=== PATIENT | male | born 1955 | race African-American/Black ===

== ENCOUNTER 2021-11-28 00:58 | Inpatient (IN) | payer MEDICARE, MEDICAID ==
[2021-11-28 02:43] LABS: #Eosinphils 0.3 thou/uL (0.0-0.7); #Lymphocytes 2.2 thou/uL (1.20-3.40); #Monocytes 0.5 thou/uL (0.11-0.59); #Neutrophils 4.6 thou/uL (1.40-6.50); %Basophils 0.6 % (0.0-1.0); %Eosinophils 3.7 % (0.0-10.0); %Lymphocytes 29.4 % (21.0-51.0); %Monocytes 6.1 % (0.0-10.0); %Neutrophils 60.2 % (42.0-75.0); Hemoglobin 12.3 g/dL (14.0-18.0); Mean Corpuscular HGB CONC 31.5 g/dL (32.0-36.0); Mean Corpuscular Hemoglobin 26.7 pg (27.0-31.0); Mean Corpuscular Volume 84.8 fL (78.0-98.0); Mean Platelet Volume 8.9 fL (7.4-10.4); Platelet Count 325 thou/uL (130-400); RBC Distribution Width 18.4 % (11.5-14.5); Red Blood Cell (RBC) Count 4.59 mill/uL (4.70-6.10); White Blood Cell (WBC) Count 7.6 thou/uL (4.8-10.8)
[2021-11-28 03:06] LABS: ALT (SGPT) 11 U/L (8-55); AST (SGOT) 24 U/L (5-34); Albumin 3.5 g/dL (3.4-4.8); Alkaline Phosphatase 115 U/L (40-110); Anion Gap 18 mmol/L (10-20); BUN (Urea Nitrogen) 16 mg/dL (8.4-25.7); Bilirubin, Total 0.3 mg/dL (0.2-1.2); Calc. Creatinine Clearance 0 mL/min (70-130); Calcium 9.5 mg/dL (7.8-10.44); Carbon Dioxide 19 mmol/L (23-31); Chloride 105 mmol/L (98-107); Globulin 5.6 g/dL (2.4-3.5); Glucose 93 mg/dL (80-115); Potassium 4.8 mmol/L (3.5-5.1); Protein, Total 9.1 g/dL (5.8-8.1); Sodium 137 mmol/L (136-145)
[2021-11-28] MEDS ORDERED: Vancomycin 1 GM/200 ML BAG ONE (04:02)
[2021-11-28] MEDS ORDERED: Cefepime 2 GM VIAL ONE (04:02)
[2021-11-28] MEDS ORDERED: Ondansetron PF 4 MG/2 ML Vial IVP PRN ×2 (06:15→07:53)
[2021-11-28] MEDS ORDERED: Ondansetron ODT 4 MG TAB SL PRN (06:15)
[2021-11-28] MEDS ORDERED: Cefepime 2 GM in Sodium Chloride 0.9% 100 ML IVPB SCH ×2 (09:00→12:00)
[2021-11-28 09:59] VITALS: BMI 26.6
[2021-11-28] MEDS ORDERED: hydrALAZINE 25 MG TAB PO SCH (10:15)
[2021-11-28] MEDS: Enoxaparin Sodium 40 MG/0.4 ML SYRINGE SC SCH (11:35)
[2021-11-28] MEDS: hydrALAZINE 25 MG TAB PO SCH ×2 (14:59→20:15)
[2021-11-28] MEDS: Acetaminophen 325 MG TAB PO PRN (20:22)
[2021-11-29] MEDS ORDERED: Vancomycin 1.5 GRAM/300 ML BAG 1.5 GM in Premix Bag 1 BAG IVPB SCH (04:00)
[2021-11-29] MEDS: VANCOMYCIN 1.25 GM/250 ML BAG 1.25 GM in Premix Bag 1 BAG IVPB SCH (04:09)
[2021-11-29] MEDS: hydrALAZINE 25 MG TAB PO SCH ×3 (08:41→20:07)
[2021-11-29] MEDS: Enoxaparin Sodium 40 MG/0.4 ML SYRINGE SC SCH (08:41)
[2021-11-29] MEDS ORDERED: hydrALAZINE 20 MG/ML VIAL SLOW IVP PRN ×2 (09:00→21:08)
[2021-11-29] MEDS: Ammonium Lactate 12% Lotion 225 GM BOT TOP SCH ×2 (10:27→20:39)
[2021-11-29] MEDS: cefTRIAXone\\ROCEPHIN 2 GM in Sodium Chloride 0.9% 100 ML IVPB SCH (10:28)
[2021-11-29 10:55] LABS: Anion Gap 13 mmol/L (10-20); BUN (Urea Nitrogen) 11 mg/dL (8.4-25.7); Calc. Creatinine Clearance 72 mL/min (70-130); Calcium 8.4 mg/dL (7.8-10.44); Carbon Dioxide 23 mmol/L (23-31); Chloride 106 mmol/L (98-107); Glucose 98 mg/dL (80-115); Potassium 3.5 mmol/L (3.5-5.1); Sodium 138 mmol/L (136-145)
[2021-11-29 11:53] LABS: Hemoglobin 10.1 g/dL (14.0-18.0); Mean Corpuscular Hemoglobin 26.5 pg (27.0-31.0); Mean Corpuscular Volume 85.4 fL (78.0-98.0); Mean Platelet Volume 9.1 fL (7.4-10.4); Platelet Count 265 thou/uL (130-400); White Blood Cell (WBC) Count 6.3 thou/uL (4.8-10.8)
[2021-11-29 11:54] LABS: Band 1 % (5-11); Eosinophils 9 % (0-10); Lymphocytes 24 % (21-51); MDiff Complete? YES; Monocytes 6 % (0-10); Neutrophil 59 % (42-75); Platelet Morphology Comment Appears Adequate; RBC Morphology Normal; Reactive Lymphocytes 1 % (0-10)
[2021-11-29] MEDS: Saccharomyces boulardii 250 MG CAP PO SCH (20:07)
[2021-11-30] MEDS: Acetaminophen 325 MG TAB PO PRN (03:01)
[2021-11-30 04:45] LABS: #Eosinphils 0.7 thou/uL (0.0-0.7); #Lymphocytes 1.7 thou/uL (1.20-3.40); #Monocytes 0.4 thou/uL (0.11-0.59); #Neutrophils 3.6 thou/uL (1.40-6.50); %Basophils 0.4 % (0.0-1.0); %Eosinophils 10.6 % (0.0-10.0); %Lymphocytes 26.7 % (21.0-51.0); %Monocytes 6.8 % (0.0-10.0); %Neutrophils 55.4 % (42.0-75.0); Hemoglobin 11.1 g/dL (14.0-18.0); Mean Corpuscular HGB CONC 30.7 g/dL (32.0-36.0); Mean Corpuscular Volume 84.7 fL (78.0-98.0); Mean Platelet Volume 11.4 fL (7.4-10.4); Platelet Count 190 thou/uL (130-400); RBC Distribution Width 17.9 % (11.5-14.5); Red Blood Cell (RBC) Count 4.28 mill/uL (4.70-6.10); White Blood Cell (WBC) Count 6.4 thou/uL (4.8-10.8)
[2021-11-30 05:01] LABS: Vancomycin, Trough 26.4 ug/mL
[2021-11-30 05:05] LABS: Anion Gap 15 mmol/L (10-20); BUN (Urea Nitrogen) 10 mg/dL (8.4-25.7); Calc. Creatinine Clearance 76 mL/min (70-130); Calcium 9.1 mg/dL (7.8-10.44); Carbon Dioxide 23 mmol/L (23-31); Chloride 106 mmol/L (98-107); Glucose 85 mg/dL (80-115); Magnesium 1.7 mg/dL (1.6-2.6); Phosphorus 3.1 mg/dL (2.3-4.7); Potassium 3.8 mmol/L (3.5-5.1); Sodium 140 mmol/L (136-145)
[2021-11-30] MEDS: VANCOMYCIN 1.25 GM/250 ML BAG 1.25 GM in Premix Bag 1 BAG IVPB SCH ×2 (05:11→05:16)
[2021-11-30] MEDS: cefTRIAXone\\ROCEPHIN 2 GM in Sodium Chloride 0.9% 100 ML IVPB SCH (08:13)
[2021-11-30] MEDS: pyridOXINE 50 MG (B6) TAB PO SCH (08:13)
[2021-11-30] MEDS: Folic Acid 1 MG TAB PO SCH (08:13)
[2021-11-30] MEDS: Cyanocobalamin (Vitamin B-12) 1,000 MCG TAB PO SCH (08:13)
[2021-11-30] MEDS: Cholecalciferol 1,000 UNITS (25 MCG) TAB PO SCH (08:13)
[2021-11-30] MEDS: Enoxaparin Sodium 40 MG/0.4 ML SYRINGE SC SCH (08:13)
[2021-11-30] MEDS: Multivit, Therapeutic 1 TAB PO SCH (08:13)
[2021-11-30] MEDS: hydrALAZINE 25 MG TAB PO SCH ×3 (08:13→22:12)
[2021-11-30] MEDS: Thiamine 100 MG TAB PO SCH (08:13)
[2021-11-30] MEDS: Ammonium Lactate 12% Lotion 225 GM BOT TOP SCH ×2 (08:14→21:05)
[2021-11-30] MEDS ORDERED: Carvedilol 3.125 MG TAB PO SCH (18:00)
[2021-11-30] MEDS: Saccharomyces boulardii 250 MG CAP PO SCH (22:12)
[2021-11-30] MEDS: Cefepime 1 GM in Sodium Chloride 0.9% 100 ML IVPB SCH (22:13)
[2021-12-01] MEDS: Vancomycin HCl 750 MG in Sodium Chloride 0.9% 250 ML 250 ML IVPB SCH (05:04)
[2021-12-01] MEDS: Acetaminophen 325 MG TAB PO PRN ×2 (05:18→22:24)
[2021-12-01] MEDS: Enoxaparin Sodium 40 MG/0.4 ML SYRINGE SC SCH (08:59)
[2021-12-01] MEDS: Cefepime 1 GM in Sodium Chloride 0.9% 100 ML IVPB SCH (08:59)
[2021-12-01] MEDS: pyridOXINE 50 MG (B6) TAB PO SCH (09:00)
[2021-12-01] MEDS: hydrALAZINE 25 MG TAB PO SCH ×3 (09:00→22:24)
[2021-12-01] MEDS: Multivit, Therapeutic 1 TAB PO SCH (09:00)
[2021-12-01] MEDS: Thiamine 100 MG TAB PO SCH (09:00)
[2021-12-01] MEDS: Carvedilol 3.125 MG TAB PO SCH ×2 (09:00→16:58)
[2021-12-01] MEDS: Cholecalciferol 1,000 UNITS (25 MCG) TAB PO SCH (09:00)
[2021-12-01] MEDS: Colchicine 0.6 MG TAB PO SCH (09:00)
[2021-12-01] MEDS: Folic Acid 1 MG TAB PO SCH (09:00)
[2021-12-01] MEDS: Cyanocobalamin (Vitamin B-12) 1,000 MCG TAB PO SCH (09:00)
[2021-12-01] MEDS: Ammonium Lactate 12% Lotion 225 GM BOT TOP SCH ×2 (09:01→22:24)
[2021-12-01] MEDS ORDERED: Cefepime 2 GM in Sodium Chloride 0.9% 100 ML IVPB SCH (18:30)
[2021-12-01] MEDS: Saccharomyces boulardii 250 MG CAP PO SCH (22:24)
[2021-12-02] MEDS: Cefepime 2 GM in Sodium Chloride 0.9% 100 ML IVPB SCH ×3 (02:45→17:17)
[2021-12-02] MEDS: Vancomycin HCl 750 MG in Sodium Chloride 0.9% 250 ML 250 ML IVPB SCH (03:57)
[2021-12-02 07:11] LABS: Mean Corpuscular HGB CONC 31.1 g/dL (32.0-36.0); Mean Corpuscular Hemoglobin 26.3 pg (27.0-31.0); Mean Corpuscular Volume 84.6 fL (78.0-98.0); Mean Platelet Volume 9.9 fL (7.4-10.4); Platelet Count 194 thou/uL (130-400); RBC Distribution Width 17.5 % (11.5-14.5); White Blood Cell (WBC) Count 7.9 thou/uL (4.8-10.8)
[2021-12-02 07:48] LABS: Anion Gap 13 mmol/L (10-20); BUN (Urea Nitrogen) 10 mg/dL (8.4-25.7); Calc. Creatinine Clearance 69 mL/min (70-130); Calcium 8.9 mg/dL (7.8-10.44); Carbon Dioxide 21 mmol/L (23-31); Chloride 107 mmol/L (98-107); Glucose 89 mg/dL (80-115); Potassium 4.5 mmol/L (3.5-5.1); Sodium 136 mmol/L (136-145)
[2021-12-02 07:55] LABS: Anisocytosis SLIGHT = 6-15 cells (100X) (0-5/hpf); Eosinophils 10 % (0-10); Hypochromia SLIGHT = 6-15 cells (100X) (0-5/hpf); Lymphocytes 26 % (21-51); MDiff Complete? YES; Monocytes 8 % (0-10); Neutrophil 53 % (42-75); Platelet Morphology Comment Appears Adequate; Polychromasia SLIGHT = 2-3 cells (100X) (0-2/hpf); Reactive Lymphocytes 3 % (0-10)
[2021-12-02] MEDS: hydrALAZINE 25 MG TAB PO SCH ×3 (10:06→21:04)
[2021-12-02] MEDS: Enoxaparin Sodium 40 MG/0.4 ML SYRINGE SC SCH (10:06)
[2021-12-02] MEDS: Folic Acid 1 MG TAB PO SCH (10:07)
[2021-12-02] MEDS: pyridOXINE 50 MG (B6) TAB PO SCH (10:07)
[2021-12-02] MEDS: Colchicine 0.6 MG TAB PO SCH (10:07)
[2021-12-02] MEDS: Multivit, Therapeutic 1 TAB PO SCH (10:07)
[2021-12-02] MEDS: Thiamine 100 MG TAB PO SCH (10:07)
[2021-12-02] MEDS: Carvedilol 3.125 MG TAB PO SCH ×2 (10:07→17:18)
[2021-12-02] MEDS: Cholecalciferol 1,000 UNITS (25 MCG) TAB PO SCH (10:07)
[2021-12-02] MEDS: Cyanocobalamin (Vitamin B-12) 1,000 MCG TAB PO SCH (10:08)
[2021-12-02] MEDS: Ammonium Lactate 12% Lotion 225 GM BOT TOP SCH ×2 (10:08→21:05)
[2021-12-02] MEDS: Acetaminophen 325 MG TAB PO PRN (21:05)
[2021-12-02] MEDS: Saccharomyces boulardii 250 MG CAP PO SCH (21:05)
[2021-12-03] MEDS: Cefepime 2 GM in Sodium Chloride 0.9% 100 ML IVPB SCH ×3 (03:00→16:57)
[2021-12-03 03:48] LABS: Vancomycin, Trough 25.3 ug/mL
[2021-12-03] MEDS: Multivit, Therapeutic 1 TAB PO SCH (08:55)
[2021-12-03] MEDS: Colchicine 0.6 MG TAB PO SCH (08:55)
[2021-12-03] MEDS: Thiamine 100 MG TAB PO SCH (08:55)
[2021-12-03] MEDS: Carvedilol 3.125 MG TAB PO SCH ×2 (08:55→15:17)
[2021-12-03] MEDS: Enoxaparin Sodium 40 MG/0.4 ML SYRINGE SC SCH (08:55)
[2021-12-03] MEDS: Folic Acid 1 MG TAB PO SCH (08:55)
[2021-12-03] MEDS: Cyanocobalamin (Vitamin B-12) 1,000 MCG TAB PO SCH (08:55)
[2021-12-03] MEDS: Cholecalciferol 1,000 UNITS (25 MCG) TAB PO SCH (08:55)
[2021-12-03] MEDS: hydrALAZINE 25 MG TAB PO SCH ×3 (08:55→21:36)
[2021-12-03] MEDS: pyridOXINE 50 MG (B6) TAB PO SCH (08:55)
[2021-12-03] MEDS: Ammonium Lactate 12% Lotion 225 GM BOT TOP SCH ×2 (08:56→21:37)
[2021-12-03] MEDS ORDERED: Vancomycin HCl 500 MG in Sodium Chloride 0.9% 100 ML IVPB SCH (16:00)
[2021-12-03] MEDS: Saccharomyces boulardii 250 MG CAP PO SCH (21:36)
[2021-12-04] MEDS: Cefepime 2 GM in Sodium Chloride 0.9% 100 ML IVPB SCH ×3 (01:56→19:16)
[2021-12-04] MEDS ORDERED: Ferrous Sulfate 325 MG TAB PO SCH (08:00)
[2021-12-04 09:45] LABS: Vancomycin, Random 19.4 ug/mL (See Comment)
[2021-12-04] MEDS: Folic Acid 1 MG TAB PO SCH (10:09)
[2021-12-04] MEDS: Multivit, Therapeutic 1 TAB PO SCH (10:09)
[2021-12-04] MEDS: Thiamine 100 MG TAB PO SCH (10:09)
[2021-12-04] MEDS: Carvedilol 3.125 MG TAB PO SCH ×2 (10:09→16:14)
[2021-12-04] MEDS: pyridOXINE 50 MG (B6) TAB PO SCH (10:09)
[2021-12-04] MEDS: Colchicine 0.6 MG TAB PO SCH (10:09)
[2021-12-04] MEDS: Cyanocobalamin (Vitamin B-12) 1,000 MCG TAB PO SCH (10:10)
[2021-12-04] MEDS: Enoxaparin Sodium 40 MG/0.4 ML SYRINGE SC SCH (10:10)
[2021-12-04] MEDS: Cholecalciferol 1,000 UNITS (25 MCG) TAB PO SCH (10:10)
[2021-12-04] MEDS: Ammonium Lactate 12% Lotion 225 GM BOT TOP SCH (10:11)
[2021-12-04] MEDS: hydrALAZINE 25 MG TAB PO SCH ×2 (10:12→16:14)
[2021-12-04 15:47] LABS: Vancomycin, Random 19.4 ug/mL (See Comment)
[2021-12-04 17:53] VITALS: BP 154/84; TEMP 98.4
== END 2021-12-04 19:25 | DRG 593 ==
LOC: ERS 00:58 → T4-B 04:02 → OBSVTOIN 11-29 21:07
PROVIDERS: ADMIT Hospitalist; ATTEND Hospitalist
DX: L97.929 Non-pressure chronic ulcer of unspecified part of left lower leg with unspecified severity (principal); L03.116 Cellulitis of left lower limb; L97.919 Non-pressure chronic ulcer of unspecified part of right lower leg with unspecified severity; Z20.822 Contact with and (suspected) exposure to COVID-19; M10.9 Gout, unspecified; D53.9 Nutritional anemia, unspecified; I12.9 Hypertensive chronic kidney disease with stage 1 through stage 4 chronic kidney disease, or unspecified chronic kidney disease; N18.2 Chronic kidney disease, stage 2 (mild)
CPT/HCPCS: 36415; 80048; 80053; 80202; 83735; 84100; 85025; 85652; 86140; 87070; 87077; 87205; 96365; 96367; J0692; J0696; J1650; J3370; J3490; J7050; U0003; U0005

== ENCOUNTER 2022-03-26 14:11 | Inpatient (IN) | payer MEDICARE, MEDICAID ==
[2022-03-26 15:40] LABS: #Lymphocytes 2.2 thou/uL (1.20-3.40); #Monocytes 1.8 thou/uL (0.11-0.59); #Neutrophils 9.1 thou/uL (1.40-6.50); %Basophils 0.1 % (0.0-1.0); %Eosinophils 0.4 % (0.0-10.0); %Lymphocytes 16.9 % (21.0-51.0); %Monocytes 13.4 % (0.0-10.0); %Neutrophils 69.3 % (42.0-75.0); Hemoglobin 12.8 g/dL (14.0-18.0); Mean Corpuscular HGB CONC 32.1 g/dL (32.0-36.0); Mean Platelet Volume 8.6 fL (7.4-10.4); Platelet Count 249 thou/uL (130-400); RBC Distribution Width 16.3 % (11.5-14.5); Red Blood Cell (RBC) Count 4.75 mill/uL (4.70-6.10); White Blood Cell (WBC) Count 13.2 thou/uL (4.8-10.8)
[2022-03-26 15:58] LABS: ALT (SGPT) 10 U/L (8-55); AST (SGOT) 9 U/L (5-34); Albumin 3.6 g/dL (3.4-4.8); Alkaline Phosphatase 69 U/L (40-110); Anion Gap 12 mmol/L (10-20); BUN (Urea Nitrogen) 11 mg/dL (8.4-25.7); Bilirubin, Total 0.8 mg/dL (0.2-1.2); Calc. Creatinine Clearance 0 mL/min (70-130); Calcium 9.2 mg/dL (7.8-10.44); Carbon Dioxide 21 mmol/L (23-31); Chloride 106 mmol/L (98-107); Estimated GFR 72; Globulin 4.3 g/dL (2.4-3.5); Glucose 110 mg/dL (80-115); Potassium 3.8 mmol/L (3.5-5.1); Protein, Total 7.9 g/dL (5.8-8.1); Sodium 135 mmol/L (136-145)
[2022-03-26] MEDS ORDERED: Cefepime 2 GM VIAL ONE (16:02)
[2022-03-26] MEDS ORDERED: Vancomycin 1 GM/200 ML BAG ONE (16:02)
[2022-03-26] MEDS ORDERED: Ondansetron PF 4 MG/2 ML Vial IVP PRN (17:41)
[2022-03-26] MEDS ORDERED: Senokot S 8.6-50 MG TAB PO PRN (17:41)
[2022-03-26] MEDS ORDERED: hydrALAZINE 20 MG/ML VIAL SLOW IVP PRN (17:45)
[2022-03-26] MEDS ORDERED: hydrALAZINE 20 MG/ML VIAL ONE (18:16)
[2022-03-26] MEDS ORDERED: Morphine 4 MG/ML VIAL ONE (18:42)
[2022-03-26] MEDS ORDERED: Acetaminophen 500 MG TAB ONE (19:11)
[2022-03-26] MEDS ORDERED: Colchicine 0.6 MG TAB PO SCH (19:30)
[2022-03-26] MEDS ORDERED: Vancomycin 1 GM in Premix Bag 1 BAG IVPB SCH (19:30)
[2022-03-26 20:16] VITALS: BMI 35.7
[2022-03-26] MEDS: hydrALAZINE 25 MG TAB PO SCH (21:11)
[2022-03-26] MEDS: Acetaminophen 325 MG TAB PO PRN (21:12)
[2022-03-26] MEDS: Indomethacin 25 mg Capsule PO SCH (21:14)
[2022-03-27] MEDS: Cefepime 1 GM in Sodium Chloride 0.9% 100 ML IVPB SCH ×2 (03:36→15:18)
[2022-03-27 04:09] LABS: Bacteria/HPF 1+ HPF (None Seen); Bilirubin Negative (Negative); Blood, Urine Trace (Negative); Clarity Clear (Clear); Glucose, Urine (Dipstick) Normal (Negative); Ketone, Urine Negative (Negative); Leukocyte Negative Leu/uL (Negative); Nitrite Negative (Negative); Protein, Urine (Dipstick) 30 mg/dL (Neg-Trace); RBC/HPF 0-3 HPF (0-3); Specific Gravity, Urine 1.011 (1.002-1.036); Squamous Epithelial 0-3 HPF (0-3); Urobilinogen Normal mg/dL (Less than 2); WBC/HPF 0-3 HPF (0-3); pH, Urine 5.5 (5.0-9.0)
[2022-03-27] MEDS: Colchicine 0.6 MG TAB PO SCH (08:32)
[2022-03-27] MEDS: hydrALAZINE 25 MG TAB PO SCH ×3 (08:32→20:21)
[2022-03-27] MEDS: Indomethacin 25 mg Capsule PO SCH ×3 (08:32→20:21)
[2022-03-27] MEDS: Carvedilol 3.125 MG TAB PO SCH ×2 (08:32→17:37)
[2022-03-27] MEDS: Ferrous Sulfate 325 MG TAB PO SCH (08:32)
[2022-03-27] MEDS: Folic Acid 1 MG TAB PO SCH (08:32)
[2022-03-27] MEDS: Enoxaparin Sodium 40 MG/0.4 ML SYRINGE SC SCH (08:33)
[2022-03-27] MEDS: pyridOXINE 50 MG (B6) TAB PO SCH (08:33)
[2022-03-27] MEDS: Thiamine 100 MG TAB PO SCH (08:33)
[2022-03-27 08:55] LABS: #Eosinphils 0.3 thou/uL (0.0-0.7); #Lymphocytes 1.6 thou/uL (1.20-3.40); #Monocytes 0.6 thou/uL (0.11-0.59); %Basophils 0.3 % (0.0-1.0); %Eosinophils 2.6 % (0.0-10.0); %Lymphocytes 15.4 % (21.0-51.0); %Monocytes 5.9 % (0.0-10.0); %Neutrophils 75.8 % (42.0-75.0); Hemoglobin 13.4 g/dL (14.0-18.0); Mean Corpuscular HGB CONC 30.3 g/dL (32.0-36.0); Mean Corpuscular Hemoglobin 26.8 pg (27.0-31.0); Mean Corpuscular Volume 88.5 fL (78.0-98.0); Mean Platelet Volume 8.9 fL (7.4-10.4); Platelet Count 216 thou/uL (130-400); RBC Distribution Width 16.7 % (11.5-14.5); Red Blood Cell (RBC) Count 4.99 mill/uL (4.70-6.10); White Blood Cell (WBC) Count 10.5 thou/uL (4.8-10.8)
[2022-03-27 09:09] LABS: ALT (SGPT) 9 U/L (8-55); AST (SGOT) 9 U/L (5-34); Albumin 3.2 g/dL (3.4-4.8); Alkaline Phosphatase 66 U/L (40-110); Anion Gap 15 mmol/L (10-20); BUN (Urea Nitrogen) 10 mg/dL (8.4-25.7); Bilirubin, Total 0.9 mg/dL (0.2-1.2); CRP (Inflammatory) 20.85 mg/dL (= or < 0.5); Calc. Creatinine Clearance 99 mL/min (70-130); Calcium 8.9 mg/dL (7.8-10.44); Carbon Dioxide 17 mmol/L (23-31); Chloride 107 mmol/L (98-107); Estimated GFR 79; Glucose 103 mg/dL (80-115); Potassium 3.5 mmol/L (3.5-5.1); Protein, Total 7.2 g/dL (5.8-8.1); Sodium 135 mmol/L (136-145)
[2022-03-27] MEDS: Vancomycin 1 GM in Premix Bag 1 BAG IVPB SCH ×2 (10:04→20:22)
[2022-03-27] MEDS: Acetaminophen 325 MG TAB PO PRN (20:22)
[2022-03-28] MEDS: Cefepime 1 GM in Sodium Chloride 0.9% 100 ML IVPB SCH (05:34)
[2022-03-28] MEDS ORDERED: Senokot S 8.6-50 MG TAB PO PRN (06:30)
[2022-03-28] MEDS: pyridOXINE 50 MG (B6) TAB PO SCH (08:19)
[2022-03-28] MEDS: Carvedilol 3.125 MG TAB PO SCH ×2 (08:19→16:54)
[2022-03-28] MEDS: hydrALAZINE 25 MG TAB PO SCH ×3 (08:19→21:02)
[2022-03-28] MEDS: Indomethacin 25 mg Capsule PO SCH (08:19)
[2022-03-28] MEDS: Colchicine 0.6 MG TAB PO SCH (08:19)
[2022-03-28] MEDS: Folic Acid 1 MG TAB PO SCH (08:19)
[2022-03-28] MEDS: Saccharomyces boulardii 250 MG CAP PO SCH (08:19)
[2022-03-28] MEDS: Enoxaparin Sodium 40 MG/0.4 ML SYRINGE SC SCH (08:19)
[2022-03-28] MEDS: Ferrous Sulfate 325 MG TAB PO SCH (08:19)
[2022-03-28] MEDS: Thiamine 100 MG TAB PO SCH (08:19)
[2022-03-28 08:58] LABS: #Eosinphils 0.3 thou/uL (0.0-0.7); #Lymphocytes 1.7 thou/uL (1.20-3.40); #Monocytes 0.8 thou/uL (0.11-0.59); #Neutrophils 5.6 thou/uL (1.40-6.50); %Basophils 0.1 % (0.0-1.0); %Eosinophils 3.6 % (0.0-10.0); %Lymphocytes 19.8 % (21.0-51.0); %Monocytes 9.5 % (0.0-10.0); %Neutrophils 67.1 % (42.0-75.0); Hemoglobin 11.1 g/dL (14.0-18.0); Mean Corpuscular HGB CONC 31.1 g/dL (32.0-36.0); Mean Corpuscular Volume 86.7 fL (78.0-98.0); Mean Platelet Volume 8.8 fL (7.4-10.4); Platelet Count 223 thou/uL (130-400); RBC Distribution Width 15.9 % (11.5-14.5); Red Blood Cell (RBC) Count 4.11 mill/uL (4.70-6.10); White Blood Cell (WBC) Count 8.4 thou/uL (4.8-10.8)
[2022-03-28 09:09] LABS: Anion Gap 13 mmol/L (10-20); BUN (Urea Nitrogen) 15 mg/dL (8.4-25.7); Calc. Creatinine Clearance 73 mL/min (70-130); Calcium 8.4 mg/dL (7.8-10.44); Carbon Dioxide 19 mmol/L (23-31); Chloride 109 mmol/L (98-107); Estimated GFR 55; Glucose 102 mg/dL (80-115); Potassium 3.5 mmol/L (3.5-5.1); Sodium 137 mmol/L (136-145)
[2022-03-28 09:20] LABS: Vancomycin, Trough 38.7 ug/mL
[2022-03-28] MEDS: Sodium Chloride 0.9% 1,000 ML IV SCH ×2 (10:05→23:42)
[2022-03-28] MEDS ORDERED: Iopamidol-370 76% 500 ML 1 ML ONE (11:25)
[2022-03-29] MEDS: Sodium Chloride 0.9% 1,000 ML IV SCH (04:53)
[2022-03-29] MEDS: Enoxaparin Sodium 40 MG/0.4 ML SYRINGE SC SCH (08:12)
[2022-03-29] MEDS: Ferrous Sulfate 325 MG TAB PO SCH (08:13)
[2022-03-29] MEDS: hydrALAZINE 25 MG TAB PO SCH ×2 (08:13→15:23)
[2022-03-29] MEDS: Saccharomyces boulardii 250 MG CAP PO SCH (08:13)
[2022-03-29] MEDS: Thiamine 100 MG TAB PO SCH (08:13)
[2022-03-29] MEDS: pyridOXINE 50 MG (B6) TAB PO SCH (08:13)
[2022-03-29] MEDS: Folic Acid 1 MG TAB PO SCH (08:13)
[2022-03-29] MEDS: Carvedilol 3.125 MG TAB PO SCH (08:13)
[2022-03-29] MEDS: Colchicine 0.6 MG TAB PO SCH (08:13)
[2022-03-29 08:21] LABS: Chloride 109 mmol/L (98-107); Potassium 3.6 mmol/L (3.5-5.1); Sodium 137 mmol/L (136-145)
[2022-03-29 08:22] LABS: Calcium 8.6 mg/dL (7.8-10.44); Glucose 109 mg/dL (80-115)
[2022-03-29 08:23] LABS: Carbon Dioxide 20 mmol/L (23-31)
[2022-03-29 08:24] LABS: Anion Gap 12 mmol/L (10-20)
[2022-03-29 08:26] LABS: BUN (Urea Nitrogen) 14 mg/dL (8.4-25.7); Calc. Creatinine Clearance 81 mL/min (70-130); Estimated GFR 62
[2022-03-29 12:18] VITALS: BP 164/84; TEMP 98.8
== END 2022-03-29 16:29 | disposition home health service (06) | DRG 300 ==
LOC: ERS 14:11 → SUATTDRO 14:11 → T4-A 17:33 → OBSVTOIN 03-27 10:21
PROVIDERS: ADMIT Internal Medicine; ATTEND Internal Medicine
DX: I87.2 Venous insufficiency (chronic) (peripheral) (principal); L97.819 Non-pressure chronic ulcer of other part of right lower leg with unspecified severity; L97.829 Non-pressure chronic ulcer of other part of left lower leg with unspecified severity; Z20.822 Contact with and (suspected) exposure to COVID-19; M10.9 Gout, unspecified; I12.9 Hypertensive chronic kidney disease with stage 1 through stage 4 chronic kidney disease, or unspecified chronic kidney disease; N18.9 Chronic kidney disease, unspecified; D63.1 Anemia in chronic kidney disease; Z79.899 Other long term (current) drug therapy
CPT/HCPCS: 36415; 75635; 80048; 80053; 80202; 81003; 81015; 83605; 84145; 85025; 85652; 86140; 87040; 93005; 93923; 93970; 96372; 96374; 96375; 96376; 97139; G0378; J0360; J0692; J1650; J2270; J3370; J3490; J7050; Q9967; U0003; U0005

== ENCOUNTER 2023-03-31 17:21 | Inpatient (IN) | payer MEDICARE, MEDICAID ==
[2023-03-31 19:17] LABS: #Eosinphils 0.2 thou/uL (0.0-0.7); #Monocytes 0.5 thou/uL (0.11-0.59); #Neutrophils 3.7 thou/uL (1.40-6.50); %Basophils 0.5 % (0.0-1.0); %Eosinophils 3.4 % (0.0-10.0); %Lymphocytes 30.6 % (21.0-51.0); %Monocytes 7.5 % (0.0-10.0); %Neutrophils 57.8 % (42.0-75.0); Hematocrit 44.8 % (42.0-52.0); Hemoglobin 14.6 g/dL (14.0-18.0); Mean Corpuscular HGB CONC 32.6 g/dL (32.0-36.0); Mean Corpuscular Hemoglobin 28.5 pg (27.0-31.0); Mean Corpuscular Volume 87.5 fl (78.0-98.0); Mean Platelet Volume 10.6 fL (7.4-10.4); Platelet Count 174 10x3/uL (130-400); RBC Distribution Width 16.8 % (11.5-14.5); Red Blood Cell (RBC) Count 5.12 mill/uL (4.70-6.10); White Blood Cell (WBC) Count 6.4 10x3/uL (4.8-10.8)
[2023-03-31] MEDS ORDERED: Cefepime 2 GM VIAL ONE (19:28)
[2023-03-31 20:14] LABS: ALT (SGPT) 49 U/L (8-55); AST (SGOT) 55 U/L (5-34); Albumin 4.1 g/dL (3.4-4.8); Alkaline Phosphatase 144 U/L (40-110); Anion Gap 18 mmol/L (10-20); BUN (Urea Nitrogen) 13 mg/dL (8.4-25.7); Bilirubin, Total 0.6 mg/dL (0.2-1.2); Calc. Creatinine Clearance 0 mL/min (70-130); Calcium 9.3 mg/dL (7.8-10.44); Carbon Dioxide 24 mmol/L (23-31); Chloride 99 mmol/L (98-107); Estimated GFR 55; Globulin 4.5 g/dL (2.4-3.5); Glucose 93 mg/dL (80-115); Potassium 3.8 mmol/L (3.5-5.1); Protein, Total 8.6 g/dL (5.8-8.1); Sodium 137 mmol/L (136-145)
[2023-03-31] MEDS ORDERED: Ondansetron PF 4 MG/2 ML Vial IVP PRN (21:12)
[2023-03-31] MEDS ORDERED: Sodium Chloride 0.9% 1,000 ML IV SCH (21:45)
[2023-04-01 00:42] VITALS: BMI 26.8
[2023-04-01] MEDS ORDERED: hydrALAZINE 25 MG TAB PO SCH (01:45)
[2023-04-01 05:18] LABS: #Eosinphils 0.1 thou/uL (0.0-0.7); #Monocytes 0.4 thou/uL (0.11-0.59); #Neutrophils 4.4 thou/uL (1.40-6.50); %Basophils 0.2 % (0.0-1.0); %Eosinophils 1.1 % (0.0-10.0); %Lymphocytes 24.3 % (21.0-51.0); %Monocytes 6.1 % (0.0-10.0); %Neutrophils 67.8 % (42.0-75.0); Hematocrit 39.7 % (42.0-52.0); Mean Corpuscular HGB CONC 32.7 g/dL (32.0-36.0); Mean Corpuscular Hemoglobin 28.6 pg (27.0-31.0); Mean Corpuscular Volume 87.3 fl (78.0-98.0); Mean Platelet Volume 9.9 fL (7.4-10.4); Platelet Count 168 10x3/uL (130-400); RBC Distribution Width 16.7 % (11.5-14.5); Red Blood Cell (RBC) Count 4.55 mill/uL (4.70-6.10); White Blood Cell (WBC) Count 6.5 10x3/uL (4.8-10.8)
[2023-04-01 05:28] LABS: Hemoglobin A1c 4.9 % (4.0-6.0)
[2023-04-01 05:51] LABS: Anion Gap 14 mmol/L (10-20); BUN (Urea Nitrogen) 12 mg/dL (8.4-25.7); Calc. Creatinine Clearance 81 mL/min (70-130); Calcium 8.2 mg/dL (7.8-10.44); Carbon Dioxide 23 mmol/L (23-31); Chloride 103 mmol/L (98-107); Estimated GFR 68; Glucose 100 mg/dL (80-115); Potassium 3.1 mmol/L (3.5-5.1); Sodium 137 mmol/L (136-145)
[2023-04-01] MEDS ORDERED: Cefepime 1 GM in Sodium Chloride 0.9% 100 ML IVPB SCH (08:00)
[2023-04-01] MEDS ORDERED: Potassium Chloride 20 MEQ TAB PO SCH (08:45)
[2023-04-01 08:59] LABS: Magnesium 1.4 mg/dL (1.6-2.6); Phosphorus 2.7 mg/dL (2.3-4.7)
[2023-04-01] MEDS ORDERED: Carvedilol 3.125 MG TAB PO SCH (09:00)
[2023-04-01] MEDS ORDERED: Magnesium 2 GM/50 ML(in water) 2 GM in Premix Bag 1 BAG IVPB SCH ×2 (09:15→14:15)
[2023-04-01] MEDS: Ferrous Sulfate 325 MG TAB PO SCH (09:21)
[2023-04-01] MEDS: hydrALAZINE 25 MG TAB PO SCH ×3 (09:22→20:02)
[2023-04-01] MEDS: Potassium Chloride 20 MEQ in Premix Bag 1 BAG IVPB SCH ×2 (09:22→12:21)
[2023-04-01] MEDS: Acetaminophen 325 MG TAB PO PRN ×3 (12:22→22:04)
[2023-04-01] MEDS: Carvedilol 3.125 MG TAB PO SCH (16:25)
[2023-04-01] MEDS: Cefepime 2 GM in Sodium Chloride 0.9% 100 ML IVPB SCH (20:03)
[2023-04-01] MEDS: VANCOMYCIN 2 GRAM/500 ML BAG 2 GM in Premix Bag 1 BAG IVPB SCH (20:43)
[2023-04-02 05:05] LABS: #Eosinphils 0.2 thou/uL (0.0-0.7); #Monocytes 0.4 thou/uL (0.11-0.59); #Neutrophils 3.1 thou/uL (1.40-6.50); %Basophils 0.2 % (0.0-1.0); %Eosinophils 2.8 % (0.0-10.0); %Monocytes 6.8 % (0.0-10.0); %Neutrophils 53.9 % (42.0-75.0); Hematocrit 34.5 % (42.0-52.0); Hemoglobin 11.4 g/dL (14.0-18.0); Mean Corpuscular Hemoglobin 29.5 pg (27.0-31.0); Mean Corpuscular Volume 89.4 fl (78.0-98.0); Mean Platelet Volume 10.6 fL (7.4-10.4); Platelet Count 163 10x3/uL (130-400); Red Blood Cell (RBC) Count 3.86 mill/uL (4.70-6.10); White Blood Cell (WBC) Count 5.8 10x3/uL (4.8-10.8)
[2023-04-02 05:34] LABS: Anion Gap 11 mmol/L (10-20); BUN (Urea Nitrogen) 11 mg/dL (8.4-25.7); Calc. Creatinine Clearance 64 mL/min (70-130); Calcium 8.1 mg/dL (7.8-10.44); Carbon Dioxide 23 mmol/L (23-31); Chloride 105 mmol/L (98-107); Estimated GFR 51; Glucose 98 mg/dL (80-115); Potassium 3.1 mmol/L (3.5-5.1); Sodium 136 mmol/L (136-145)
[2023-04-02 05:37] LABS: Magnesium 2.1 mg/dL (1.6-2.6); Phosphorus 2.2 mg/dL (2.3-4.7)
[2023-04-02] MEDS: Cefepime 2 GM in Sodium Chloride 0.9% 100 ML IVPB SCH (08:12)
[2023-04-02] MEDS: Carvedilol 3.125 MG TAB PO SCH ×2 (08:12→16:18)
[2023-04-02] MEDS: Ferrous Sulfate 325 MG TAB PO SCH (08:12)
[2023-04-02] MEDS: hydrALAZINE 25 MG TAB PO SCH ×3 (08:13→20:41)
[2023-04-02] MEDS: Cefepime 1 GM in Sodium Chloride 0.9% 100 ML IVPB SCH (20:41)
[2023-04-02] MEDS: VANCOMYCIN 2 GRAM/500 ML BAG 2 GM in Premix Bag 1 BAG IVPB SCH (21:24)
[2023-04-02] MEDS: VANCOMYCIN 1.75 GM/500 ML BAG 1.75 GM in Premix Bag 1 BAG IVPB SCH (21:36)
[2023-04-03] MEDS ORDERED: Ziprasidone 20 MG VIAL IM SCH (02:00)
[2023-04-03] MEDS ORDERED: Sterile Water 10 ML VIAL FS PRN (02:15)
[2023-04-03 05:40] LABS: #Eosinphils 0.3 thou/uL (0.0-0.7); #Monocytes 0.5 thou/uL (0.11-0.59); #Neutrophils 3.1 thou/uL (1.40-6.50); %Basophils 0.2 % (0.0-1.0); %Eosinophils 4.3 % (0.0-10.0); %Lymphocytes 35.6 % (21.0-51.0); %Monocytes 7.7 % (0.0-10.0); %Neutrophils 51.9 % (42.0-75.0); Hematocrit 35.6 % (42.0-52.0); Hemoglobin 11.6 g/dL (14.0-18.0); Mean Corpuscular HGB CONC 32.6 g/dL (32.0-36.0); Mean Corpuscular Hemoglobin 29.1 pg (27.0-31.0); Mean Corpuscular Volume 89.4 fl (78.0-98.0); Mean Platelet Volume 10.3 fL (7.4-10.4); Platelet Count 163 10x3/uL (130-400); RBC Distribution Width 16.8 % (11.5-14.5); Red Blood Cell (RBC) Count 3.98 mill/uL (4.70-6.10); White Blood Cell (WBC) Count 5.9 10x3/uL (4.8-10.8)
[2023-04-03 06:01] LABS: Anion Gap 13 mmol/L (10-20); BUN (Urea Nitrogen) 12 mg/dL (8.4-25.7); Calc. Creatinine Clearance 75 mL/min (70-130); Calcium 8.4 mg/dL (7.8-10.44); Carbon Dioxide 22 mmol/L (23-31); Chloride 106 mmol/L (98-107); Estimated GFR 61; Glucose 97 mg/dL (80-115); Sodium 138 mmol/L (136-145)
[2023-04-03] MEDS: Cefepime 1 GM in Sodium Chloride 0.9% 100 ML IVPB SCH ×2 (09:34→22:03)
[2023-04-03] MEDS: Carvedilol 3.125 MG TAB PO SCH ×2 (09:35→16:21)
[2023-04-03] MEDS: hydrALAZINE 25 MG TAB PO SCH ×3 (09:35→22:03)
[2023-04-03] MEDS: Ferrous Sulfate 325 MG TAB PO SCH (09:35)
[2023-04-03] MEDS ORDERED: Potassium Chloride 20 MEQ TAB PO SCH (10:15)
[2023-04-03] MEDS: VANCOMYCIN 1.75 GM/500 ML BAG 1.75 GM in Premix Bag 1 BAG IVPB SCH (22:19)
[2023-04-04] MEDS ORDERED: hydrALAZINE 20 MG/ML VIAL SLOW IVP SCH (03:15)
[2023-04-04] MEDS ORDERED: Aquaphor 30 GM JAR TOP SCH (09:00)
[2023-04-04] MEDS: Carvedilol 3.125 MG TAB PO SCH ×2 (10:00→18:06)
[2023-04-04] MEDS: Cefepime 1 GM in Sodium Chloride 0.9% 100 ML IVPB SCH ×2 (10:01→20:42)
[2023-04-04] MEDS: Ferrous Sulfate 325 MG TAB PO SCH (10:01)
[2023-04-04] MEDS: hydrALAZINE 25 MG TAB PO SCH ×3 (10:01→20:43)
[2023-04-04 22:23] LABS: Vancomycin, Trough 20.2 ug/mL
[2023-04-04] MEDS ORDERED: Vancomycin 1.5 GRAM/300 ML BAG 1.5 GM in Premix Bag 1 BAG IVPB SCH (23:00)
[2023-04-04] MEDS: VANCOMYCIN 1.75 GM/500 ML BAG 1.75 GM in Premix Bag 1 BAG IVPB SCH (23:05)
[2023-04-05] MEDS ORDERED: Lorazepam 2 MG/ML VIAL SLOW IVP SCH (01:00)
[2023-04-05] MEDS ORDERED: Aquaphor 3.5 oz 99 GM JAR TOP SCH (09:00)
[2023-04-05] MEDS: hydrALAZINE 25 MG TAB PO SCH (09:36)
[2023-04-05] MEDS: Cefepime 1 GM in Sodium Chloride 0.9% 100 ML IVPB SCH (09:36)
[2023-04-05] MEDS: Carvedilol 3.125 MG TAB PO SCH (09:36)
[2023-04-05] MEDS: Ferrous Sulfate 325 MG TAB PO SCH (09:36)
[2023-04-05 11:50] VITALS: TEMP 97.7
[2023-04-05 16:04] VITALS: BP 174/99
== END 2023-04-05 16:04 | DRG 300 ==
LOC: ERS 17:21 → SURG A 21:14 → OBSVTOIN 21:14 → SURG A 04-03 15:52
PROVIDERS: ADMIT Internal Medicine; ATTEND Internal Medicine
DX: I70.261 Atherosclerosis of native arteries of extremities with gangrene, right leg (principal); L03.115 Cellulitis of right lower limb; L97.819 Non-pressure chronic ulcer of other part of right lower leg with unspecified severity; M10.9 Gout, unspecified; N18.2 Chronic kidney disease, stage 2 (mild); I87.8 Other specified disorders of veins; E87.6 Hypokalemia; E83.42 Hypomagnesemia; D63.8 Anemia in other chronic diseases classified elsewhere; I12.9 Hypertensive chronic kidney disease with stage 1 through stage 4 chronic kidney disease, or unspecified chronic kidney disease; D53.9 Nutritional anemia, unspecified; Z79.899 Other long term (current) drug therapy
CPT/HCPCS: 36415; 36416; 80048; 80053; 80202; 83036; 83605; 83735; 84100; 85025; 87040; 96365; 96366; 96367; 97139; J0360; J0692; J1650; J2060; J3370; J3475; J3480; J3486; J3490; J7050

== ENCOUNTER 2023-12-11 23:55 | Inpatient (IN) | payer MEDICARE, MEDICAID ==
[2023-12-12 01:09] LABS: #Basophils Less than 0.03 10x3/uL (0.0-0.2); %Basophils 0.1 % (0.0-1.0); %Eosinophils 0.5 % (0.0-10.0); %Lymphocytes 10.2 % (21.0-51.0); %Monocytes 8.4 % (0.0-10.0); %Neutrophils 80.4 % (42.0-75.0); Hematocrit 33.7 % (42.0-52.0); Hemoglobin 10.6 g/dL (14.0-18.0); Mean Corpuscular HGB CONC 31.5 g/dL (32.0-36.0); Mean Corpuscular Hemoglobin 26.6 pg (27.0-31.0); Mean Corpuscular Volume 84.7 fL (78.0-98.0); Mean Platelet Volume 9.6 fL (7.4-10.4); Platelet Count 273 10x3/uL (130-400); Red Blood Cell (RBC) Count 3.98 mill/uL (4.70-6.10)
[2023-12-12] MEDS ORDERED: Aspirin Chewable 81 MG TAB ONE (01:19)
[2023-12-12 01:22] LABS: INR-International Normal Ratio 1.3; PTT 38.7 sec (22.9-36.1); Prothrombin Time 16.4 sec (12.0-14.7)
[2023-12-12 01:25] LABS: ALT (SGPT) 12 U/L (8-55); AST (SGOT) 15 U/L (5-34); Albumin 2.5 g/dL (3.4-4.8); Alkaline Phosphatase 120 U/L (40-110); Anion Gap 18 mmol/L (10-20); BUN (Urea Nitrogen) 18 mg/dL (8.4-25.7); Calc. Creatinine Clearance 0 mL/min (70-130); Calcium 9.4 mg/dL (7.8-10.44); Carbon Dioxide 15 mmol/L (23-31); Chloride 105 mmol/L (98-107); Estimated GFR 52; Globulin 5.6 g/dL (2.4-3.5); Glucose 89 mg/dL (80-115); Magnesium 1.8 mg/dL (1.6-2.6); Potassium 4.3 mmol/L (3.5-5.1); Protein, Total 8.1 g/dL (5.8-8.1); Sodium 134 mmol/L (136-145)
[2023-12-12 01:36] LABS: Lipase 27 U/L (8-78)
[2023-12-12] MEDS ORDERED: Ondansetron ODT 4 MG TAB PO PRN (02:41)
[2023-12-12] MEDS: Lactated Ringer's 1,000 ML IV SCH (04:31)
[2023-12-12 04:57] LABS: ALT (SGPT) 12 U/L (8-55); AST (SGOT) 14 U/L (5-34); Albumin 2.2 g/dL (3.4-4.8); Alkaline Phosphatase 115 U/L (40-110); Anion Gap 17 mmol/L (10-20); BUN (Urea Nitrogen) 17 mg/dL (8.4-25.7); Calc. Creatinine Clearance 0 mL/min (70-130); Carbon Dioxide 16 mmol/L (23-31); Chloride 106 mmol/L (98-107); Cholesterol 128 mg/dl (< 200 Desired); Estimated GFR 58; Globulin 4.8 g/dL (2.4-3.5); Glucose 92 mg/dL (80-115); HDL Cholesterol 32 mg/dL (>60 Neg Risk); Iron 16 ug/dL (65-175); Iron Binding Capacity, Total 151 mcg/dL (261-462); LDL Cholesterol, Calculated 83 mg/dL; Potassium 3.9 mmol/L (3.5-5.1); Sodium 135 mmol/L (136-145); Triglycerides 63 mg/dL (Less than 150)
[2023-12-12 04:58] LABS: Troponin I 0.015 ng/mL (< 0.028)
[2023-12-12 08:18] LABS: #Basophils Less than 0.03 10x3/uL (0.0-0.2); %Basophils 0.1 % (0.0-1.0); %Eosinophils 1.1 % (0.0-10.0); %Lymphocytes 15.2 % (21.0-51.0); %Monocytes 9.4 % (0.0-10.0); %Neutrophils 73.6 % (42.0-75.0); Hematocrit 36.4 % (42.0-52.0); Hemoglobin 11.4 g/dL (14.0-18.0); Mean Corpuscular HGB CONC 31.3 g/dL (32.0-36.0); Mean Corpuscular Hemoglobin 26.2 pg (27.0-31.0); Mean Corpuscular Volume 83.7 fL (78.0-98.0); Mean Platelet Volume 9.1 fL (7.4-10.4); Platelet Count 278 10x3/uL (130-400); Red Blood Cell (RBC) Count 4.35 mill/uL (4.70-6.10)
[2023-12-12 08:31] LABS: Hemoglobin A1c 5.3 % (4.0-6.0)
[2023-12-12 08:39] LABS: Iron 25 ug/dL (65-175); Iron Binding Capacity, Total 161 mcg/dL (261-462)
[2023-12-12 08:40] LABS: Troponin I 0.011 ng/mL (< 0.028)
[2023-12-12 08:53] LABS: Thyroid Stimulating Hormone 3.5365 uIU/mL (0.35-4.94)
[2023-12-12] MEDS ORDERED: Carvedilol 6.25 MG TAB ONE ×2 (10:53→19:59)
[2023-12-12] MEDS ORDERED: Enoxaparin 40 MG (0.4 mL) SYRINGE ONE (10:54)
[2023-12-12] MEDS: Carvedilol 6.25 MG TAB PO SCH (11:16)
[2023-12-12] MEDS: Ferrous Sulfate 325 MG TAB PO SCH (11:16)
[2023-12-12] MEDS: Enoxaparin 40 MG (0.4 mL) SYRINGE SC SCH (11:16)
[2023-12-12] MEDS ORDERED: Acetaminophen 325 MG TAB ONE ×2 (12:22→16:37)
[2023-12-12] MEDS: Acetaminophen 325 MG TAB PO PRN (12:31)
[2023-12-12] MEDS: fentaNYL 50 mcg/mL 1 mL Vial SLOW IVP SCH (16:20)
[2023-12-13 06:25] LABS: #Basophils Less than 0.03 10x3/uL (0.0-0.2); %Basophils 0.1 % (0.0-1.0); %Eosinophils 1.3 % (0.0-10.0); %Lymphocytes 14.3 % (21.0-51.0); %Monocytes 7.6 % (0.0-10.0); %Neutrophils 76.2 % (42.0-75.0); Hemoglobin 9.7 g/dL (14.0-18.0); Mean Corpuscular HGB CONC 32.3 g/dL (32.0-36.0); Mean Corpuscular Hemoglobin 25.9 pg (27.0-31.0); Mean Platelet Volume 9.5 fL (7.4-10.4); Platelet Count 296 10x3/uL (130-400); RBC Distribution Width 14.7 % (11.5-14.5); Red Blood Cell (RBC) Count 3.75 mill/uL (4.70-6.10)
[2023-12-13 08:12] LABS: Chloride 107 mmol/L (98-107); Potassium 3.6 mmol/L (3.5-5.1); Sodium 138 mmol/L (136-145)
[2023-12-13 08:13] LABS: Calcium 8.8 mg/dL (7.8-10.44); Glucose 92 mg/dL (80-115)
[2023-12-13 08:14] LABS: Globulin 4.7 g/dL (2.4-3.5); Protein, Total 6.7 g/dL (5.8-8.1)
[2023-12-13 08:15] LABS: Anion Gap 17 mmol/L (10-20); Carbon Dioxide 18 mmol/L (23-31)
[2023-12-13 08:16] LABS: Bilirubin, Total 0.7 mg/dL (0.2-1.2)
[2023-12-13 08:17] LABS: Alkaline Phosphatase 126 U/L (40-110)
[2023-12-13 08:18] LABS: BUN (Urea Nitrogen) 15 mg/dL (8.4-25.7); Calc. Creatinine Clearance 0 mL/min (70-130); Estimated GFR 69
[2023-12-13 08:19] LABS: ALT (SGPT) 12 U/L (8-55); AST (SGOT) 17 U/L (5-34)
[2023-12-14 05:15] LABS: #Basophils Less than 0.03 10x3/uL (0.0-0.2); %Basophils 0.2 % (0.0-1.0); %Eosinophils 1.5 % (0.0-10.0); %Lymphocytes 17.1 % (21.0-51.0); %Neutrophils 72.5 % (42.0-75.0); Hematocrit 31.6 % (42.0-52.0); Hemoglobin 10.2 g/dL (14.0-18.0); Mean Corpuscular HGB CONC 32.3 g/dL (32.0-36.0); Mean Corpuscular Hemoglobin 26.4 pg (27.0-31.0); Mean Corpuscular Volume 81.7 fL (78.0-98.0); Mean Platelet Volume 9.4 fL (7.4-10.4); Platelet Count 326 10x3/uL (130-400); RBC Distribution Width 14.8 % (11.5-14.5); Red Blood Cell (RBC) Count 3.87 mill/uL (4.70-6.10)
[2023-12-14 05:54] LABS: ALT (SGPT) 10 U/L (8-55); AST (SGOT) 14 U/L (5-34); Albumin 1.9 g/dL (3.4-4.8); Alkaline Phosphatase 129 U/L (40-110); Anion Gap 17 mmol/L (10-20); BUN (Urea Nitrogen) 9 mg/dL (8.4-25.7); Bilirubin, Total 0.7 mg/dL (0.2-1.2); Calc. Creatinine Clearance 0 mL/min (70-130); Calcium 8.8 mg/dL (7.8-10.44); Carbon Dioxide 20 mmol/L (23-31); Chloride 100 mmol/L (98-107); Estimated GFR 78; Globulin 4.9 g/dL (2.4-3.5); Glucose 77 mg/dL (80-115); Potassium 3.5 mmol/L (3.5-5.1); Protein, Total 6.8 g/dL (5.8-8.1); Sodium 133 mmol/L (136-145)
[2023-12-14] MEDS: Losartan 25 MG TAB PO SCH (09:37)
[2023-12-14] MEDS ORDERED: HYDROcodone/Acetaminophen 5/325 mg Tablet PO PRN (09:44)
[2023-12-14] MEDS ORDERED: hydrOXYzine 10 MG TAB PO SCH (09:44)
[2023-12-15 04:24] LABS: #Basophils Less than 0.03 10x3/uL (0.0-0.2); %Basophils 0.2 % (0.0-1.0); %Eosinophils 1.7 % (0.0-10.0); %Lymphocytes 19.6 % (21.0-51.0); %Monocytes 9.7 % (0.0-10.0); %Neutrophils 67.6 % (42.0-75.0); Hematocrit 30.8 % (42.0-52.0); Mean Corpuscular HGB CONC 32.5 g/dL (32.0-36.0); Mean Corpuscular Hemoglobin 25.8 pg (27.0-31.0); Mean Corpuscular Volume 79.6 fL (78.0-98.0); Mean Platelet Volume 9.1 fL (7.4-10.4); Platelet Count 333 10x3/uL (130-400); RBC Distribution Width 14.8 % (11.5-14.5); Red Blood Cell (RBC) Count 3.87 mill/uL (4.70-6.10)
[2023-12-15 05:42] LABS: ALT (SGPT) 11 U/L (8-55); AST (SGOT) 18 U/L (5-34); Albumin 1.9 g/dL (3.4-4.8); Alkaline Phosphatase 149 U/L (40-110); Anion Gap 19 mmol/L (10-20); BUN (Urea Nitrogen) 12 mg/dL (8.4-25.7); Bilirubin, Total 0.7 mg/dL (0.2-1.2); Calc. Creatinine Clearance 76 mL/min (70-130); Calcium 8.8 mg/dL (7.8-10.44); Carbon Dioxide 20 mmol/L (23-31); Chloride 100 mmol/L (98-107); Estimated GFR 64; Globulin 4.9 g/dL (2.4-3.5); Glucose 86 mg/dL (80-115); Potassium 3.6 mmol/L (3.5-5.1); Protein, Total 6.8 g/dL (5.8-8.1); Sodium 135 mmol/L (136-145)
[2023-12-15] MEDS: Aspirin 81 mg Enteric Coated Tablet PO SCH (10:33)
[2023-12-15] MEDS: Colchicine 0.6 MG TAB PO SCH ×3 (10:33→11:05)
[2023-12-15] MEDS: traMADol HCl 50 MG TAB PO PRN (14:44)
[2023-12-16 04:17] LABS: #Basophils Less than 0.03 10x3/uL (0.0-0.2); %Basophils 0.2 % (0.0-1.0); %Eosinophils 2.6 % (0.0-10.0); %Monocytes 9.8 % (0.0-10.0); %Neutrophils 66.2 % (42.0-75.0); Hematocrit 32.2 % (42.0-52.0); Hemoglobin 10.3 g/dL (14.0-18.0); Mean Corpuscular Hemoglobin 25.6 pg (27.0-31.0); Mean Corpuscular Volume 79.9 fL (78.0-98.0); Platelet Count 372 10x3/uL (130-400); RBC Distribution Width 14.7 % (11.5-14.5); Red Blood Cell (RBC) Count 4.03 mill/uL (4.70-6.10)
[2023-12-16 04:49] LABS: ALT (SGPT) 15 U/L (8-55); AST (SGOT) 24 U/L (5-34); Albumin 1.9 g/dL (3.4-4.8); Alkaline Phosphatase 172 U/L (40-110); Anion Gap 15 mmol/L (10-20); BUN (Urea Nitrogen) 12 mg/dL (8.4-25.7); Bilirubin, Total 0.4 mg/dL (0.2-1.2); Calc. Creatinine Clearance 90 mL/min (70-130); Carbon Dioxide 22 mmol/L (23-31); Chloride 101 mmol/L (98-107); Estimated GFR 78; Globulin 5.2 g/dL (2.4-3.5); Glucose 105 mg/dL (80-115); Potassium 3.7 mmol/L (3.5-5.1); Protein, Total 7.1 g/dL (5.8-8.1); Sodium 134 mmol/L (136-145)
[2023-12-16] MEDS: Aquaphor 2.8 oz 80 GM JAR TOP SCH (20:53)
[2023-12-16] MEDS: traMADol HCl 50 MG TAB PO PRN (20:58)
[2023-12-17] MEDS: Aquaphor 2.8 oz 80 GM JAR TOP SCH (08:44)
[2023-12-17] MEDS: Clopidogrel Bisulfate 75 MG TAB PO SCH (08:44)
[2023-12-17] MEDS: Losartan 25 MG TAB PO SCH (08:47)
[2023-12-17 08:56] VITALS: BP 162/72; TEMP 97.7
== END 2023-12-17 10:30 | DRG 69 ==
LOC: ERS 23:55 → ERHOLD 12-12 02:17 → 2SE 12-12 20:02
PROVIDERS: ADMIT Family Medicine; ATTEND Family Medicine
DX: G45.9 Transient cerebral ischemic attack, unspecified (principal); N17.9 Acute kidney failure, unspecified; I73.9 Peripheral vascular disease, unspecified; N18.2 Chronic kidney disease, stage 2 (mild); I12.9 Hypertensive chronic kidney disease with stage 1 through stage 4 chronic kidney disease, or unspecified chronic kidney disease; I89.0 Lymphedema, not elsewhere classified; M10.9 Gout, unspecified; B87.9 Myiasis, unspecified; D63.1 Anemia in chronic kidney disease; F03.90 Unspecified dementia, unspecified severity, without behavioral disturbance, psychotic disturbance, mood disturbance, and anxiety; R41.89 Other symptoms and signs involving cognitive functions and awareness; Z79.2 Long term (current) use of antibiotics; Z79.899 Other long term (current) drug therapy
CPT/HCPCS: 36415; 70450; 71045; 80053; 80061; 82607; 82728; 83036; 83540; 83550; 83605; 83690; 83735; 84443; 84484; 85025; 85610; 85730; 87040; 93005; 97139; J1650; J7120